=== PATIENT | female | born 1990 | race Caucasian/White ===

== ENCOUNTER 2018-07-05 16:26 | Emergency (ER) | payer OTHER ==
[~2018-07-05] VITALS: Ht 165.1 cm; Wt 83.9 kg
[2018-07-05] MEDS ORDERED: SODIUM CHLORIDE 0.9% 1000ML 1,000 ML IV STA (16:36)
[2018-07-05] MEDS ORDERED: KETOROLAC TROMETHAMINE 30 MG/ML VIAL IV ONE (16:45)
[2018-07-05] MEDS ORDERED: ONDANSETRON HCL INJ 2MG/ML 2ML 2 MG/ML VIAL IV ONE (16:45)
[2018-07-05] MEDS ORDERED: FAMOTIDINE 20 MG/2 ML VIAL IV ONE (16:45)
--- NOTE | 2018-07-05 17:04 | NUR ---
3 WARM BLANKETS AND PILLOW FOR PT AND RAILS UP X 2 AND LIGHTS OFF PER PT REQUEST. PT/FM UPDATED PLAN OF CARE THROUGHOUT. PT INFOMRED BY TECH AND NURSE NEED FOR URINE. PT IS AWARE.
--- NOTE | 2018-07-05 17:13 | NUR ---
3RD NOTIFICATION OF NEED FOR URINE.
--- NOTE | 2018-07-05 17:14 | NUR ---
CAT SCAN PAPERWORK SHOWS PT CHARTED IUD IN PLACE....
--- NOTE | 2018-07-05 17:15 | NUR ---
PT STATES STILL WITH PAIN, MD NOTIFIED. MD STATES NO MORE PAIN MEDS TIL CATSCAN RESULTED. MD TO ROOM TO SPEAK WITH PT.
--- NOTE | 2018-07-05 17:55 | NUR ---
PT STATES PAIN NOW DOWN TO 07/14
[2018-07-05] MEDS ORDERED: IOPAMIDOL 370 MG/ML 50ML INFUS..BTL INJ ONE (18:00)
[2018-07-05] MEDS ORDERED: DIPHENHYDRAMINE HCL INJ 50 MG/ML VIAL IV ONE (18:00)
--- NOTE | 2018-07-05 18:01 | NUR ---
MD AWARE PT STILL WITH PAIN. PENDING CT RESULTS.
--- NOTE | 2018-07-05 18:36 | Diagnostic Imaging Report ---
EXAM: CT Abdomen and Pelvis WITH contrast INDICATION: Vomiting, upper abdominal pain ^[id number] ^[id number] COMPARISON: None. TECHNIQUE: Abdomen and pelvis were scanned utilizing a multidetector helical scanner from the lung base to the pubic symphysis after administration of IV contrast. Coronal and sagittal reformations were obtained. Routine protocol was performed. Scan was performed when during portal venous phase. IV CONTRAST: 100 mL of Isovue-370 ORAL CONTRAST: None RADIATION DOSE: Total DLP: 712.98 mGy*cm Estimated effective dose: (DLP x 0.015 x size factor) mSv COMPLICATIONS: None FINDINGS: LINES and TUBES: None. LOWER THORAX: Unremarkable HEPATOBILIARY: No focal hepatic lesions. No biliary ductal dilation. GALLBLADDER: No radio-opaque stones or sludge. No wall thickening. SPLEEN: No splenomegaly. PANCREAS: No focal masses or ductal dilatation. ADRENALS: No adrenal nodules KIDNEYS/URETERS: Kidneys enhance symmetrically. No hydronephrosis. No cystic or solid mass lesions. No stones. GI TRACT: No abnormal distention, wall thickening, or evidence of bowel obstruction. Appendix is normal. PELVIC ORGANS/BLADDER: Unremarkable. LYMPH NODES: No lymphadenopathy. VESSELS: Unremarkable. PERITONEUM / RETROPERITONEUM: No free air or fluid. BONES: Unremarkable. SOFT TISSUES: Unremarkable. IMPRESSION: No acute abnormalities in the abdomen and pelvis. Signed by: Dr. Mercedes Noel M.D. on 07/05/2018 6:33 PM
[2018-07-05] MEDS ORDERED: PROMETHAZINE HCL 25 MG TAB PO ONE (18:45)
[2018-07-05] MEDS ORDERED: HYDROCODONE/APAP 5MG-325MG TAB PO ONE (18:45)
== END 2018-07-05 19:04 | disposition home or self-care (01) ==
LOC: FSED 16:26
DX: R10.33 Periumbilical pain (principal); R10.84 Generalized abdominal pain; K52.9 Noninfective gastroenteritis and colitis, unspecified
CPT/HCPCS: 74177; 80053; 81003; 81025; 85025; 99284; J1200; J1885; J2405; J7030; Q9967

== ENCOUNTER 2018-07-07 08:41 | Emergency (ER) | payer OTHER ==
[~2018-07-07] VITALS: Ht 165.1 cm; Wt 83.9 kg
--- OUTSIDE RECORDS SUMMARY | 2018-07-07 08:43 | XMS REPORT ---
Author Author [facility] Address Unknown Phone Unavailable Care Team Providers Care Fish Technologist Name Role Phone Errol PHIPPS Unavailable Unavailable Problems This patient has no known problems. Allergies, Adverse Reactions, Alerts This patient has no known allergies or adverse reactions. Medications This patient has no known medications. Results Test Description Test Time Test Comments Text Results Atomic Results Result Comments CT ABD/PEL WITH CONTRAST-HOPD 2018-07-05 18:21:00 [place] [id number] Patient Name: GATO ENRIQUEZ MR #: [id number] : 1990 Age/Sex: 27/F Req #: [id number] Adm Physician: Ordered by: CLEVE PHIPPS MD Report #: [id number] Location: [facility] Room/Bed: Procedure: [id number] HOPD/CT ABD/PEL WITH CONTRAST-HOPD Exam Date: 07/05/18 Exam Time: 1748 REPORT STATUS: Signed EXAM: CT Abdomen and Pelvis WITH contrast INDICATION: Vomiting, upper abdominal pain [id number] COMPARISON: None. TECHNIQUE: Abdomen and pelvis were scanned utilizing a multidetector helical scanner from the lung base to the pubic symphysis after administration of IV contrast. Coronal and sagittal reformations were obtained. Routine protocol was performed. Scan was performed when during portal venous phase. IV CONTRAST: 100 mL of Isovue-370 ORAL CONTRAST: None RADIATION DOSE: Total DLP: 712.98 mGy*cm Estimated effective dose: (DLP x 0.015 x size factor) mSv COMPLICATIONS: None FINDINGS: LINES and TUBES: None. LOWER THORAX: Unremarkable HEPATOBILIARY: No focal hepatic lesions. No biliary ductal dilation. GALLBLADDER: No radio-opaque stones or sludge. No wall thickening. SPLEEN: No splenomegaly. PANCREAS: No focal masses or ductal dilatation. ADRENALS: No adrenal nodules KIDN EYS/URETERS: Kidneys enhance symmetrically. No hydronephrosis. No cystic or solid mass lesions. No stones. GI TRACT: No abnormal distention, wall thickening, or evidence of bowel obstruction. Appendix is normal. PELVIC ORGANS/BLADDER: Unremarkable. LYMPH NODES: No lymphadenopathy. VESSELS: Unremarkable. PERITONEUM / RETROPERITONEUM: No free air or fluid. BONES: Unremarkable. SOFT TISSUES: Unremarkable. IMPRESSION: No acute abnormalities in the abdomen and pelvis. Signed by: Dr. Kin Ibarra M.D. on 07/05/2018 6:33 PM Dictated By: KIN IBARRA MD 183 Transcribed By: JUAN JOSE on 07/05/181832 COPY TO: CLEVE PHIPPS MD
[2018-07-07] MEDS ORDERED: ONDANSETRON HCL INJ 2MG/ML 2ML 2 MG/ML VIAL IV STA (09:09)
[2018-07-07] MEDS ORDERED: KETOROLAC TROMETHAMINE 30 MG/ML VIAL IV STA (09:09)
[2018-07-07] MEDS ORDERED: FAMOTIDINE 20 MG/2 ML VIAL IV STA (09:09)
[2018-07-07] MEDS ORDERED: SODIUM CHLORIDE 0.9% 1000ML 1,000 ML IV SCH (09:15)
--- NOTE | 2018-07-07 09:42 | NUR ---
Labs and med orders completed. Awaiting results.
--- NOTE | 2018-07-07 10:31 | NUR ---
U/S completed. Awaiting result. Labs back reported to ERP results of UDS.
--- NOTE | 2018-07-07 10:56 | NUR ---
Manufacturing Quality Engineer retrieved the specimen for lab. Awaiting final results.
--- NOTE | 2018-07-07 11:02 | Diagnostic Imaging Report ---
EXAMINATION: Right upper quadrant ultrasound CLINICAL INDICATION: Right upper quadrant pain and nausea COMPARISON: Right upper quadrant pain DISCUSSION: Transverse and longitudinal images of the right upper quadrant were obtained. The liver is normal in size measuring 12.9centimeters in length in the right midclavicular line and shows normal echogenicity. No focal masses are seen in the liver. There is no intrahepatic biliary dilatation. The common bile duct is normal in caliber and measures 0.3 cm. The main portal vein is normal in caliber and measures 0.7 cm with normal hepatopetal flow. The gallbladder is normal in appearance without stones, wall thickening or pericholecystic fluid. The sonographic Oneil's sign is negative. The visualized portions of the pancreatic body are unremarkable. The right kidney measures 9.3 centimeters in length. There is normal renal cortical echogenicity and no hydronephrosis, mass or shadowing calculi. The visualized portions of the great vessels are normal. No free fluid is seen. IMPRESSION: Unremarkable right upper quadrant ultrasound. Signed by: Dr. Stuart Armenta M.D. on 07/07/2018 10:59 AM
[2018-07-07] MEDS ORDERED: POTASSIUM CHLORIDE 20 MEQ TAB CR PO ONE (12:30)
== END 2018-07-07 12:35 | disposition home or self-care (01) ==
LOC: FSED 08:41
DX: R10.13 Epigastric pain (principal); R10.12 Left upper quadrant pain; R10.11 Right upper quadrant pain; R11.2 Nausea with vomiting, unspecified; E87.6 Hypokalemia; K52.9 Noninfective gastroenteritis and colitis, unspecified; F32.9 Major depressive disorder, single episode, unspecified
CPT/HCPCS: 36415; 76705; 80053; 80307; 81003; 81025; 83690; 85025; 99284; J1885; J2405; J7030

== ENCOUNTER 2023-02-06 10:54 | Outpatient (RCR) | payer SELFPAY | END 2023-03-06 | LOC: PT 10:54 | PROVIDERS: ATTEND Internal Medicine Endocrinology, Diabetes & Metabolism | DX: M24.221 Disorder of ligament, right elbow (principal); M12.521 Traumatic arthropathy, right elbow; M79.652 Pain in left thigh; S70.12XA Contusion of left thigh, initial encounter ==